=== PATIENT | female | born 1985 | race Caucasian/White ===

== ENCOUNTER 2023-10-17 18:31 | Emergency (ER) | payer OTHER, SELFPAY ==
[2023-10-17 18:31] VITALS: BMI 20.5
[2023-10-17 18:36] VITALS: BP 126/88
[2023-10-17 19:05] LABS: % Basophils 0.4 % (0-2); % Eosinophils 0.8 % (0-6); % Immature Granulocytes 0.3 % (0-0.5); % Neutrophils 72.5 % (42.2-75.2); Absolute Basophils 0.1 10^3/uL (0-0.2); Absolute Eosinophils 0.1 10^3/uL (0-0.7); Absolute Lymphocytes 1.7 10^3/uL (1.2-3.4); Absolute Monocytes 1.3 10^3/uL (0.1-0.6); Absolute Neutrophils 8.3 10^3/uL (1.4-6.5); Hematocrit 39.5 % (37.0-47.0); Hemoglobin 13.9 g/dL (12.0-16.0); Mean Corp Hgb Conc. 35.2 g/dL (33.0-37.0); Mean Corpuscular Hgb 34.1 pg (27.0-31.0); Mean Corpuscular Volume 96.8 fL (81.0-99.0); Mean Platelet Volume 9.6 fL (7.4-10.4); Nucleated Red Blood Cells % 0 %; Platelet Count 212 10^3/uL (130-400); Red Blood Cell Count 4.08 10^6/uL (4.20-5.40); Red Cell Dist. Width 12.5 % (11.5-14.5); White Blood Cell Count 11.5 10^3/uL (4.8-10.8)
[2023-10-17 19:13] LABS: Urine Albumin Negative (Neg - Trace); Urine Bilirubin Negative (Negative); Urine Character Slightly Cloudy (Clear); Urine Color Straw; Urine Glucose Negative (Negative); Urine Ketone Negative (Negative); Urine Leukocyte Negative (Negative); Urine Nitrite Negative (Negative); Urine Occult Blood Negative (Negative); Urine Urobilinogen Negative (Neg - 1+)
[2023-10-17 19:21] LABS: COVID-19 Antigen Negative (Negative)
[2023-10-17 19:25] LABS: ALT (SGPT) 44 U/L (0-35); AST (SGOT) 68 U/L (14-36); Albumin 4.5 g/dl (3.5-5.0); Alkaline Phosphatase 64 U/L (38-126); Blood Urea Nitrogen 16 mg/dl (7-17); Calcium 9.1 mg/dl (8.4-10.2); Carbon Dioxide 28 mmol/L (22-30); Chloride 101 mmol/L (98-107); Glucose 96 mg/dl (70-99); Lipase 117 U/L (23-300); Potassium 4.4 mmol/L (3.5-5.1); Sodium 134 mmol/L (135-145); Total Bilirubin 0.9 mg/dl (0.2-1.3); Total Protein 7.4 g/dl (6.3-8.2); eGFR > 60.00
[2023-10-17 19:39] LABS: HCG, Serum Qualitative Screen Negative
[2023-10-17 21:22] VITALS: BP 123/92
[2023-10-17 22:02] VITALS: BP 94/66
--- NOTE | 2023-10-17 22:20 | ED.GENMED ---
History of Present Illness
General
Chief Complaint: Fever
Source: patient
Exam Limitations: none
Time Seen by Provider: 10/17/23 21:59
Nursing documentation reviewed up to this point in time: agreed with
Travel History
Have you had any contact with someone who has COVID-19?: No
Do you have any symptoms of coronavirus? Fever > 100 degrees, chills, cough, shortness of breath, sore throat, loss of taste or smell, muscle aches, or headache?: Yes
Symptoms:: see triage note
History of Present Illness
History of Present Illness:
Pleasant 38-year-old female that presents with bodyaches, chills, mid diffuse abdominal pain, vaginal burning without discharge or bleeding, and vaginal information. Patient states that her only past medical history significant for back surgeries.
She recently returned from [facility] and 2 days after her return, she developed new symptoms. While she was there, she went to a '[employer] '. She states that she also had unprotected intercourse with someone she met while there. Patient
states that when she got back to the [facility] she vaped. This was something that she had given up for a while. She states that she developed a sore throat. She went to urgent care and was tested for COVID flu and strep which were all
negative.
Vital signs are stable. Patient not hypoxic
Nursing note reviewed. I agree with nursing documentation up to this point in time.
Home Meds and allergies reviewed.
NUMBER AND COMPLEXITY OF PROBLEMS ADDRESSED AT THE ENCOUNTER
� Chronic conditions affecting care: None
� Acute Exacerbation and/or Progression of Chronic Illness: None
� Differential Diagnosis includes: Viral syndrome, infectious diarrhea, STD, HIV, hepatitis, colitis
AMOUNT AND/OR COMPLEXITY OF DATA TO BE REVIEWED AND ANALYZED
I performed an independent evaluation of the following and my interpretation is:
EKG:
CT:
X-rays:
Ultrasound:
Laboratory Studies:
Other:
Review of other/old records:
Clinical information was obtained by an independent historian:
Prescriptions/Medications Considered but not given:
Further testing considered but not performed:
RISK OF COMPLICATIONS AND/OR MORBIDITY OR MORTALITY OF PATIENT MANAGEMENT
Social determinants of health affecting care: Good Social Support
Discussion with other providers:
Escalation of care including admission/observation vs risk of discharge considered:
CRITICAL CARE NOTE:
Total Time (exclusive of procedures):
Update:
Review of Systems
Review of Systems
Allergies reviewed?: Yes
All Other Systems: ROS reviewed and negative except as documented in HPI and ROS
Constitutional: Reports fever, fatigue and chills
EENT: Reports no symptoms
Respiratory: Reports no symptoms
Cardiac: Reports no symptoms
ABD/GI: Reports no symptoms
: Reports other (Vaginal burning)
Musculoskeletal: Reports no symptoms
Skin: Reports no symptoms
Neurological: Reports no symptoms
Endocrine: Reports no symptoms
Hematologic/Lymphatic: Reports no symptoms
Psychiatric: Reports anxiety
Phy Exam
General Physical Exam
General Presentation: well appearing and mild distress
General age: appears stated age
General Skin: warm and dry
General Habitus: normal
General Mental: alert
General Hydration: appears well hydrated
ENT Exam
ENT Exam: EOMI, pharynx normal, neck supple and normocephalic
Eye Exam
Eye Exam: PERRL, cornea clear and conjunctiva normal
Cardiovascular Exam
Cardiovascular Exam: regular rate/rhythm, no edema, no murmur and normal peripheral pulses
Pulmonary Exam
Pulmonary Exam: lungs clear, no respiratory distress, no rales, no crackles, no rhonchi, no stridor, no wheezing and no cough
Gastrointestinal Exam
Gastrointestinal Exam: normal bowel sounds, non tender, soft, no organomegaly, no pulsatile mass and non distended
Neurological Exam
Neurological Exam: alert, oriented x3, no motor deficits and speech normal
Musculoskeletal Exam
Musculoskeletal Exam: full ROM and no edema
Skin Exam
Skin Exam: normal color, warm/dry, no rash, no petechia and other (Multiple tattoos)
Psychiatric Exam
Psychiatric Exam: anxious
Course
Orders/Labs/Results
Orders:
Orders
10/17/23 18:41
Test Result ONCE
10/17/23 18:53
COVID-19 Antigen Urgent
Source: Nasal Swab
Complete Blood Count/With Diff Urgent
Comprehensive Metabolic Panel Urgent
HCG, Serum Qualitative Screen Urgent
Lipase Urgent
Influenza A+B Rapid Molecular Urgent
HODAN Source: Nasal Swab
Specimen Description:
Date Specimen was Collected: 10/17/23
Time Specimen was Collected: 18:41
10/17/23 18:54
Urinalysis Reflex To Culture Urgent
Date Specimen was Collected: 10/17/23
Time Specimen was Collected: 18:41
10/17/23 22:19
Chlamydia/GC by PCR Urgent
HODAN Source: Urine
Specimen Description:
Source:: URINE
Trichomonas - Wet Prep Urgent
HODAN Source: Vagina
Specimen Description:
10/17/23 22:20
Iohexol [Omnipaque] See Protocol PO NOW STA
10/17/23 22:25
Stool Culture Urgent
HODAN Source: Feces/Stool
Specimen Description:
Stool For WBC Urgent
HODAN Source: Feces/Stool
Specimen Description:
Stool for Occult Blood Routine
10/17/23 22:27
CRP [C-Reactive Protein] Urgent
HIV Combo Urgent
Hepatitis A IgM Antibody Urgent
Hepatitis B Core Ab, IgM Urgent
Hepatitis B Surface Antibody Urgent
Hepatitis B Surface Antigen Urgent
Hepatitis C Antibody Urgent
Monotest Urgent
Sed Rate [Erythrocyte Sed Rate] Urgent
10/17/23 22:33
0.9% Sodium Chloride 1000 ml [Nss] 1,000 ml IV BOLUS
10/17/23 22:51
Ketorolac [Toradol] 15 mg IV NOW STA
10/18/23 00:00
CT Abd/pel W Iv And Oral Contr Urgent
Reason For Exam: diffuse abd pain
Abnormal Lab Results
10/17/23 10/17/23
18:53 22:27
WBC 11.5 H 10^3/uL
(4.8-10.8)
RBC 4.08 L 10^6/uL
(4.20-5.40)
MCH 34.1 H pg
(27.0-31.0)
Absolute Neuts (auto) 8.3 H 10^3/uL
(1.4-6.5)
Absolute Monos (auto) 1.3 H 10^3/uL
(0.1-0.6)
Lymphocytes % 15.0 L %
(20.5-51.1)
Monocytes % 11.0 H %
(1.7-9.3)
ESR 22 H mm/hour
(0-20)
Sodium 134 L mmol/L
(135-145)
Creatinine 0.5 L mg/dL
(0.6-1.0)
AST 68 H U/L
(14-36)
ALT 44 H U/L
(0-35)
C-Reactive Protein 34.00 H mg/L
(0.0-10.00)
10/17/23 18:53
10/17/23 18:53
Vital Signs
Initial and Last Documented VS:
Initial Vital Signs
Temp Pulse Resp BP Pulse Ox
98.0 F 91 16 126/88 98
10/17/23 18:36 10/17/23 18:36 10/17/23 18:36 10/17/23 18:36 10/17/23 18:36
Last Documented Vital Signs
Temp Pulse Resp BP Pulse Ox
98.0 F 91 16 118/80 100
10/17/23 18:36 10/17/23 18:36 10/17/23 18:36 10/18/23 00:00 10/18/23 00:00
*Critical Care Note
Total Time (30-74mins, 75-104mins- exclusive of procedures): Not Applicable
Update Note
Update Note:
10/18/2023 0107 AM: AMA Statement: This patient is choosing to leave against medical advice. I have personally explained to the patient that choosing to do so may result in permanent bodily harm or . I discussed at great length that without
further evaluation and monitoring there may be unforeseen circumstances and deterioration causing permanent bodily harm or as a result of their choice. The patient is alert, oriented, and shows the mental capacity to make clear decisions
regarding her health care at the time. The patient verbalized understanding of these risks and continues to wish to leave against medical advice.
In light of the patient�s decision to leave AMA, follow-up has been arranged and she is aware of the importance of following up as instructed. The patient has been advised that she should return to the ED immediately if she changes her mind at any
time, or if her condition begins to change or worsen.
ED Attending Note
-
Portions of this chart may have been created with voice recognition software.� Occasional wrong word or��sound alike� substitutions may have occurred due to the inherent limitations of voice recognition software.
Discharge Plan
Departure
Patient Disposition: Against Medical Advice
Date of Disposition: 10/18/23
Time of Disposition: 01:07
Patient with high blood pressure during this ER visit?: No
Discharge Problem:
Fever of unknown origin (FUO)
Instructions: Leaving Against Medical Advice, Fever, Adult ED
Referrals:
[facility] [Outside]
[facility] [Outside]
UNKNOWN - PT DOES,NOT KNOW [Family Provider] -
Activity Restrictions/Additional Instructions:
Please follow-up with your family doctor. The pulse line was listed so that you could use a new one if you so desire.
It was a pleasure meeting you and taking part in your care. We hope for your continued healing and wellness.
Please read discharge instructions in their entirety. However, they are for general education and may not describe your exact diagnosis at discharge. Information on your ER visit and medical conditions were discussed with you along with appropriate
follow up information...
If indicated, please take your medications as instructed and indicated on discharge paperwork.
Please schedule a follow up appointment as directed. Call to schedule an appointment
Please return to the emergency department with ANY change in, persisting, or worsening of symptoms. If any of your symptoms do not improve, or persist, or become more severe within 6-12 hours, please return to the emergency department for further
care.
Please return to the emergency department if you develop a headache, neck pain/stiffness, fever greater than 100.4F, chest pain, shortness of breath, persistent nausea, vomiting, slurred speech, difficulty walking, numbness/tingling, weakness, signs
of infection or any other symptoms that are worrisome to you.
If you have any questions or concerns please do not hesitate to call the Hospital at
Interventions
Interventions:
*Risk Screen - Suicide Last Done: 10/17/23 21:24
*General Assessment Last Done: 10/17/23 18:36
*Neglect/Abuse Screening Last Done: 10/17/23 21:24
ED- Fall Risk Assessment Last Done: 10/17/23 21:24
*ED COVID-19 Vaccine History Last Done: 10/17/23 18:36
ED- Neurological Assessment Last Done: 10/17/23 21:24
ED-Skin Assessment Last Done: 10/17/23 21:24
[2023-10-17] MEDS: OMNIPAQUE 50 ML PO (22:35)
[2023-10-17 22:51] LABS: Monotest Negative (Negative)
[2023-10-17 22:53] LABS: Erythrocyte Sed Rate 22 mm/hour (0-20)
[2023-10-17] MEDS: TORADOL 15 MG IV (22:58)
[2023-10-17] MEDS: NSS 1000 IV (22:59)
[2023-10-17 23:40] VITALS: BP 123/86
[2023-10-18] VITALS: BP 118/80
[2023-10-19 19:18] LABS: Hepatitis B Surface Antigen Negative (Negative)
[2023-10-19 19:22] LABS: Hepatitis A IgM Antibody Negative (Negative); Hepatitis B Core Ab, IgM Negative (Negative)
[2023-10-19 19:36] LABS: Hepatitis B Surface Antibody Positive; Hepatitis C Antibody Negative (Negative)
[2023-10-20 14:41] LABS: HIV Combo Negative (Negative)
== END 2023-10-18 01:24 | disposition left against medical advice (07) ==
LOC: EMR 18:31
PROVIDERS: Emergency Medicine; EMERGENCY PHYSICIAN Student in an Organized Health Care Education/Training Program
DX: R50.9 Fever, unspecified (principal); Z53.29 Procedure and treatment not carried out because of patient's decision for other reasons
CPT/HCPCS: 99284; 96374; 96361; 80053; 81003; 83690; 84703; 85025; 85652; 86140; 86308; 86705; 86706; 86709; 86803; 87340; 87389; 87502; 87811